=== PATIENT | female | born 1990 | race Asian ===

== ENCOUNTER 2025-03-18 06:53 | Emergency (ER) | payer OTHER ==
[~2025-03-18] VITALS: Ht 144.8 cm; Wt 41.0 kg
[2025-03-18 07:03] VITALS: O2SAT 98
[2025-03-18] MEDS ORDERED: TOPUD MT (08:50)
[2025-03-18] MEDS ORDERED: PROT20 MT (08:50)
[2025-03-18 09:15] LABS: BASOPHILS % 0.3 % (0.0-2.0); EOSINOPHILS % 0.2 % (0.0-5.0); HEMATOCRIT. 40.0 % (36.0-48.0); HEMOGLOBIN. 13.7 g/dL (12.0-16.0); LYMPHOCYTES % 10.2 % (20.0-50.0); MEAN PLATELET VOLUME 7.9 fl (7.4-10.4); MONOCYTES % 4.9 % (2.0-8.0); NEUTROPHILS % 84.4 % (40.0-76.0); PLATELET 324 x1000/uL (130-400); RED BLOOD CELL COUNT 4.41 mill/uL (4.2-5.4); RED CELL DISTRIBUTION WIDTH 13.8 % (11.6-14.6)
[2025-03-18 09:31] VITALS: BP 111/70; PULSE 74; RESP 16; TEMP 36.8; O2SAT 99
[2025-03-18 09:35] LABS: CREATININE 0.6 mg/dL (0.6-1.0); UREA NITROGEN BLOOD 10 mg/dL (9-23)
== END 2025-03-18 09:40 | disposition home or self-care (01) ==
LOC: ER 06:53
DX: K21.9 Gastro-esophageal reflux disease without esophagitis (principal); J18.9 Pneumonia, unspecified organism; Z79.899 Other long term (current) drug therapy
CPT/HCPCS: 36415; 71045; 80048; 85025; 93005; 99285